=== PATIENT | female | born 1990 | race African-American/Black ===

== ENCOUNTER 2018-11-21 06:00 | Emergency (ER) | payer SELFPAY ==
[~2018-11-21] VITALS: Ht 167.6 cm; Wt 50.0 kg
[2018-11-21 06:02] VITALS: BP 142/86
== END 2018-11-21 12:08 | disposition left against medical advice (07) ==
LOC: ER 06:00
DX: Z53.21 Procedure and treatment not carried out due to patient leaving prior to being seen by health care provider (principal)